=== PATIENT | female | born 1930 | race Caucasian/White ===

== ENCOUNTER 2018-11-29 09:23 | Inpatient (IN) | payer MEDICARE, OTHER ==
[2018-11-29] VITALS (9 sets, daily range): BP systolic 125–144; BP diastolic 47–78
[~2018-11-29] VITALS: Ht 157.5 cm; Wt 50.1 kg
[2018-11-29] MEDS ORDERED: ALBUTEROL/IPRATROPIUM 2.5MG/0.5MG, 3 ML ONE (10:30)
[2018-11-29] MEDS ORDERED: ALBUTEROL/IPRATROPIUM 2.5MG/0.5MG, 3 ML NPPB ONE (10:30)
[2018-11-29] MEDS ORDERED: SODIUM CHLORIDE FLUSH 10ML SYR IVF ONE (10:30)
[2018-11-29 10:49] LABS: ALBUMIN 3.7 g/dL (3.4-5.0); ANION GAP 5 mmol/L (5-15); CALCIUM 8.5 mg/dL (8.5-10.1); CHLORIDE 105 mmol/L (98-107); CREATININE 0.72 mg/dL (0.55-1.02)
[2018-11-29 10:53] LABS: TROPONIN I 0.113 ng/mL (0.000-0.045)
[2018-11-29 10:54] LABS: MD YES; MEAN PLATELET VOLUME 9.6 fL (7.4-10.4); PLATELET COUNT 221 x10^3/uL (130-400); RED BLOOD COUNT 3.52 x10^6/uL (3.82-5.3); RED CELL DISTRIBUTION WIDTH 18.7 % (9.6-15.2)
--- NOTE | 2018-11-29 10:56 | NUR ---
LAB CALLED CRITICAL H&H 6.7 AND 22.5 PROVIDER MADE AWARE
[2018-11-29 10:57] LABS: MEAN CORPUSCULAR HGB CONC 29.7 g/dL (32.4-35.8)
--- NOTE | 2018-11-29 11:06 | NUR ---
PT SIGNED CONSENT FOR BLOOD. AWAITING BLOOD BANK CALL AT THIS TIME.
[2018-11-29 11:17] LABS: <PLATELET ESTIMATE> ADEQUATE; ANISOCYTOSIS 1+; HYPOCHROMIA 2+; LYMPH#(MANUAL) 0.43 x10^3/uL (1-3.4); LYMPHS% (MANUAL) 6 % (22-44); MONOS#(MANUAL) 0.43 x10^3/uL (0.3-2.7); MONOS% (MANUAL) 6 % (2-9); POLYCHROMASIA 1+; SEG#(MANUAL) 6.34 x10^3/uL (1.8-6.8); SEGS% (MANUAL) 88 % (42-75)
[2018-11-29 11:18] LABS: <PLT MORPHOLOGY> NORMAL PLT MORPH
[2018-11-29] MEDS ORDERED: ONDANSETRON ODT 4 MG PO PRN (12:00)
[2018-11-29] MEDS ORDERED: LABETALOL 5MG/ML, 20ML IVPush PRN (12:00)
[2018-11-29] MEDS ORDERED: SODIUM CHLORIDE 0.9% 1,000 ML IV SCH (12:00)
[2018-11-29] MEDS ORDERED: POLYETHYLENE GLYCOL 17 GM PACKET PO PRN (12:00)
[2018-11-29] MEDS ORDERED: ONDANSETRON 2MG/ML, 2ML IVPush PRN (12:00)
[2018-11-29] MEDS ORDERED: ASPIRIN 81 MG TABLET CHEW PO ONE (12:00)
[2018-11-29] MEDS ORDERED: OMEP40CA6 PO (12:02)
[2018-11-29] MEDS ORDERED: URSO250T9 PO (12:02)
[2018-11-29] MEDS ORDERED: TIOT18CA INH (12:03)
[2018-11-29] MEDS ORDERED: DILT240C80 PO (12:03)
[2018-11-29] MEDS ORDERED: ASPIRIN 81 MG TABLET CHEW ONE (12:09)
[2018-11-29 12:22] LABS: INTERNATIONAL NORMALIZED RATIO 1.02 (0.93-1.1); PROTHROMBIN TIME 10.7 Seconds (9.6-11.5)
[2018-11-29 13:01] LABS: FREE T4 (FREE THYROXINE) 1.3 ng/dL (0.76-1.46)
--- NOTE | 2018-11-29 13:52 | NUR ---
PT RESTING COMFORTABLY AT THIS TIME. UNIT OF BLOOD INFUSING. FAMILY AT BEDSIDE.
--- NOTE | 2018-11-29 14:47 | NUR ---
ASSUMED CARE OF PT. PT TOLERATING BLOOD TRANSFUSION.
[2018-11-29] MEDS: methylPREDNISolone SOD SUCC 125 MG/2 ML IVPush SCH ×2 (15:00→20:07)
[2018-11-29 15:28] LABS: TROPONIN I 0.089 ng/mL (0.000-0.045)
[2018-11-29] MEDS ORDERED: ALBUTEROL/IPRATROPIUM 2.5MG/0.5MG, 3 ML NPPB PRN (15:30)
[2018-11-29] MEDS ORDERED: IPRATROPIUM 0.5 MG/2.5 ML INHA HHN SCH (16:30)
[2018-11-29] MEDS: PANTOPRAZOLE 40 MG IV IVPush SCH (17:00)
[2018-11-29 19:07] LABS: TROPONIN I 0.067 ng/mL (0.000-0.045)
[2018-11-29] MEDS: DILTIAZEM 120 MG CAP.ER.12H PO SCH (20:07)
[2018-11-29] MEDS: IPRATROPIUM 0.5 MG/2.5 ML INHA HHN SCH (21:12)
[2018-11-30 00:31] VITALS: BP 129/55
[2018-11-30] MEDS: methylPREDNISolone SOD SUCC 125 MG/2 ML IVPush SCH ×4 (02:57→22:13)
[2018-11-30] MEDS: IPRATROPIUM 0.5 MG/2.5 ML INHA HHN SCH ×4 (03:00→20:09)
[2018-11-30] MEDS: PANTOPRAZOLE 40 MG IV IVPush SCH (05:44)
[2018-11-30 05:47] LABS: CHLORIDE 107 mmol/L (98-107)
[2018-11-30 05:53] LABS: MEAN CORPUSCULAR HEMOGLOBIN 19.9 pg (27.0-34.8); MEAN CORPUSCULAR HGB CONC 30.1 g/dL (32.4-35.8); MEAN CORPUSCULAR VOLUME 66.2 fL (80-100); MEAN PLATELET VOLUME 8.5 fL (7.4-10.4); PLATELET COUNT 154 x10^3/uL (130-400); RED BLOOD COUNT 3.68 x10^6/uL (3.82-5.3); RED CELL DISTRIBUTION WIDTH 19.9 % (9.6-15.2)
[2018-11-30 06:02] LABS: ALANINE AMINOTRANSFERASE 14 U/L (12-78); ALBUMIN 3.3 g/dL (3.4-5.0); ALKALINE PHOSPHATASE 75 U/L (45-117); ANION GAP 6 mmol/L (5-15); BILIRUBIN,TOTAL 0.9 mg/dL (0.2-1.0); CALCIUM 8.1 mg/dL (8.5-10.1); THYROID STIMULATING HORMONE 0.244 mIU/L (0.358-3.740); TOTAL PROTEIN 6.1 g/dL (6.4-8.2)
[2018-11-30 06:31] LABS: MD YES
[2018-11-30 06:32] LABS: ANISOCYTOSIS 1+; LYMPH#(MANUAL) 0.09 x10^3/uL (1-3.4); LYMPHS% (MANUAL) 2 % (22-44); MONOS#(MANUAL) 0.04 x10^3/uL (0.3-2.7); MONOS% (MANUAL) 1 % (2-9); SEG#(MANUAL) 4.17 x10^3/uL (1.8-6.8); SEGS% (MANUAL) 97 % (42-75)
[2018-11-30 06:33] LABS: <PLATELET ESTIMATE> ADEQUATE; <PLT MORPHOLOGY> NORMAL PLT MORPH; HYPOCHROMIA 2+; POLYCHROMASIA 1+
[2018-11-30 06:36] LABS: MICROCYTOSIS 2+
[2018-11-30] MEDS ORDERED: CYANOCOBALAMIN 1,000 MCG/ML, 1ML IM ONE (07:30)
[2018-11-30 07:56] VITALS: BP 121/54
[2018-11-30] MEDS ORDERED: TEMPLATE NON-FORMULARY MED. (Tiotropium Bromide** (Spiriva**) 18 MCG) INH SCH (09:00)
[2018-11-30] MEDS: DILTIAZEM 120 MG CAP.ER.12H PO SCH ×2 (09:00→22:14)
[2018-11-30] MEDS ORDERED: DILTIAZEM HCL 120 MG PO SCH (09:00)
[2018-11-30 10:32] LABS: TROPONIN I 0.058 ng/mL (0.000-0.045)
[2018-11-30] MEDS: IRON SUCROSE COMPLEX 100MG/5ML IV SCH (11:10)
[2018-11-30] MEDS: SENNA/DOCUSATE TABLET PO SCH (11:10)
[2018-11-30 12:38] VITALS: BP 117/59
[2018-11-30] MEDS: PANTOPROZOLE 40MG TABLET PO SCH (17:03)
[2018-11-30 19:08] VITALS: BP 121/57
[2018-12-01 02:16] VITALS: BP 121/52
[2018-12-01] MEDS: IPRATROPIUM 0.5 MG/2.5 ML INHA HHN SCH ×4 (03:00→20:05)
[2018-12-01 04:20] LABS: ALBUMIN 3.1 g/dL (3.4-5.0); ANION GAP 4 mmol/L (5-15); CALCIUM 8.4 mg/dL (8.5-10.1); CHLORIDE 108 mmol/L (98-107)
[2018-12-01 04:22] LABS: CREATININE 0.81 mg/dL (0.55-1.02); MEAN CORPUSCULAR HEMOGLOBIN 20.4 pg (27.0-34.8); MEAN CORPUSCULAR HGB CONC 30.3 g/dL (32.4-35.8); MEAN CORPUSCULAR VOLUME 67.3 fL (80-100); MEAN PLATELET VOLUME 8.8 fL (7.4-10.4); PLATELET COUNT 150 x10^3/uL (130-400); RED CELL DISTRIBUTION WIDTH 19.9 % (9.6-15.2)
[2018-12-01 04:39] LABS: MD YES
[2018-12-01 04:41] LABS: LYMPH#(MANUAL) 0.47 x10^3/uL (1-3.4); LYMPHS% (MANUAL) 4 % (22-44); MONOS#(MANUAL) 0.24 x10^3/uL (0.3-2.7); MONOS% (MANUAL) 2 % (2-9); SEG#(MANUAL) 11.09 x10^3/uL (1.8-6.8); SEGS% (MANUAL) 94 % (42-75)
[2018-12-01 04:42] LABS: ANISOCYTOSIS 1+
[2018-12-01 04:43] LABS: <PLATELET ESTIMATE> ADEQUATE; HYPOCHROMIA 2+; MICROCYTOSIS 2+; POLYCHROMASIA 1+
[2018-12-01 04:44] LABS: OVALOCYTES 1+; TARGET CELLS 1+
[2018-12-01 04:45] LABS: <PLT MORPHOLOGY> NORMAL PLT MORPH
[2018-12-01] MEDS: PANTOPROZOLE 40MG TABLET PO SCH ×2 (05:05→17:28)
[2018-12-01] MEDS: methylPREDNISolone SOD SUCC 125 MG/2 ML IVPush SCH ×4 (05:05→22:06)
[2018-12-01 07:17] VITALS: BP 100/52
[2018-12-01] MEDS: DILTIAZEM 120 MG CAP.ER.12H PO SCH ×2 (09:00→22:04)
[2018-12-01] MEDS ORDERED: BISACODYL 5 MG EC TABLET PO SCH (09:00)
[2018-12-01] MEDS: POLYETHYLENE GLYCOL 17 GM PACKET PO SCH (09:39)
[2018-12-01] MEDS: BISACODYL 5 MG EC TABLET PO SCH (09:39)
[2018-12-01] MEDS: SENNA/DOCUSATE TABLET PO SCH (09:39)
[2018-12-01] MEDS: IRON SUCROSE COMPLEX 100MG/5ML IV SCH (09:39)
[2018-12-01 15:23] VITALS: BP 111/53
[2018-12-01] MEDS ORDERED: CYANOCOBALAMIN 1,000 MCG/ML, 1ML IM ONE (16:00)
[2018-12-01 18:50] VITALS: BP 121/48
[2018-12-02 01:45] VITALS: BP 106/59
[2018-12-02] MEDS: IPRATROPIUM 0.5 MG/2.5 ML INHA HHN SCH ×2 (02:20→08:50)
[2018-12-02] MEDS: PANTOPROZOLE 40MG TABLET PO SCH (06:07)
[2018-12-02] MEDS: methylPREDNISolone SOD SUCC 125 MG/2 ML IVPush SCH (06:07)
[2018-12-02 06:52] VITALS: BP 103/47
[2018-12-02] MEDS ORDERED: PRED10TA PO (08:25)
[2018-12-02] MEDS ORDERED: PANT40TA5 PO (08:25)
[2018-12-02] MEDS ORDERED: ALBU8.5H8 IH (08:28)
[2018-12-02] MEDS ORDERED: TIOT18CA INH (08:28)
[2018-12-02] MEDS ORDERED: BUDE10.2 INH (08:28)
[2018-12-02] MEDS: BISACODYL 5 MG EC TABLET PO SCH (08:56)
[2018-12-02] MEDS: DILTIAZEM 120 MG CAP.ER.12H PO SCH (08:56)
[2018-12-02] MEDS: POLYETHYLENE GLYCOL 17 GM PACKET PO SCH (08:56)
[2018-12-02] MEDS: IRON SUCROSE COMPLEX 100MG/5ML IV SCH (08:56)
[2018-12-02] MEDS: SENNA/DOCUSATE TABLET PO SCH (08:56)
== END 2018-12-02 11:44 | disposition home or self-care (01) | DRG 811 ==
LOC: ED 10:00 → EDIP 11:50 → 4WST 15:01
PROVIDERS: ADMIT Internal Medicine; ATTEND Internal Medicine
PROC: 30233N1 Transfusion of Nonautologous Red Blood Cells into Peripheral Vein, Percutaneous Approach (ICD-10-PCS; principal; 2018-11-29)
DX: D50.9 Iron deficiency anemia, unspecified (principal); J96.21 Acute and chronic respiratory failure with hypoxia; J44.1 Chronic obstructive pulmonary disease with (acute) exacerbation; I31.3 Pericardial effusion (noninflammatory); J44.0 Chronic obstructive pulmonary disease with (acute) lower respiratory infection; J98.11 Atelectasis; E53.8 Deficiency of other specified B group vitamins; F17.210 Nicotine dependence, cigarettes, uncomplicated; H54.8 Legal blindness, as defined in USA; I10 Essential (primary) hypertension; I27.20 Pulmonary hypertension, unspecified; Z99.81 Dependence on supplemental oxygen
CPT/HCPCS: 36415; 71045; 80048; 80053; 82040; 82306; 82607; 82728; 83540; 83550; 83735; 83880; 84100; 84439; 84443; 84484; 85025; 85610; 86850; 86900; 86923; 93005; 93306; 94640; 99285; G0378; J1756; J7620; J7644; C9113; J2930; J3420; J7030; J7512; P9016

== ENCOUNTER 2020-12-11 10:29 | Inpatient (IN) | payer MEDICARE ==
[2020-12-11] VITALS (11 sets, daily range): BP systolic 127–167; BP diastolic 61–80
[~2020-12-11] VITALS: Ht 157.5 cm; Wt 52.4 kg
[~2020-12-11 10:29] MED LIST: ALBU8.5H8 IH; ASPI-1026 PO; ATOR40TA78 PO; BUDE10.2 INH; CLOP75TA PO; DILT240C80 PO; OMEP40CA42 PO; PANT40TA6 PO; POLY17PO5 PO; PRED10TA PO; TIOT18CA INH; URSO250T10 PO
--- NOTE | 2020-12-11 10:44 | NUR ---
BIB EMS FROM [facility] W/ C/O SOB. PT STATES NO OTHER COMPLAINTS. PER [facility] PT HAD BLOODWORK DONE TODAY AND CAME BACK W/ HGB 6 AND BROUGHT TO ED. PT IS ON PLAVIX AND HAS HX GIB. PT NOTED TO HAVE POSITIVE GUAIC STOOL ON ARRIVAL TO ED. PT STATES SHE HAS DARK STOOL BERLIEVES SECONDARY TO IRON SUPPLEMENTS. VS HEAD OF PARTNER DEVELOPMENT HR 98, O2 SASTS 98% 4L NC, BP 134/71. PT RESTING ON GURNEY. NADN. VSS. MONITORS APPLIED. EKG COMPLETED. JOSH FELIX AT BEDSIDE FOR EVAL.
[2020-12-11] MEDS ORDERED: SODIUM CHLORIDE FLUSH 10ML SYR IVF ONE (11:00)
[2020-12-11] MEDS ORDERED: SODIUM CHLORIDE 0.9% 1,000ML IVBOLUS ONE (11:00)
[2020-12-11] MEDS ORDERED: ALBU6.7H8 INH (11:03)
[2020-12-11 11:25] LABS: MEAN CORPUSCULAR HEMOGLOBIN 27.2 pg (27.0-34.8); MEAN CORPUSCULAR HGB CONC 32.9 g/dL (32.4-35.8); MEAN PLATELET VOLUME 8.1 fL (7.4-10.4); PLATELET COUNT 362 x10^3/uL (130-400); RED BLOOD COUNT 2.41 x10^6/uL (3.82-5.3)
[2020-12-11] MEDS ORDERED: PANTOPRAZOLE 80 MG in SODIUM CHLORIDE 0.9% 100 ML IV SCH (11:30)
[2020-12-11] MEDS ORDERED: PANTOPRAZOLE 80 MG in SODIUM CHLORIDE 0.9% 50 ML IVPB ONE (11:30)
[2020-12-11 11:35] LABS: ALANINE AMINOTRANSFERASE 18 U/L (12-78); ALBUMIN 2.8 g/dL (3.4-5.0); ANION GAP 4 mmol/L (5-15); CALCIUM 9.3 mg/dL (8.5-10.1); CHLORIDE 100 mmol/L (98-107); CREATININE 0.62 mg/dL (0.55-1.02)
[2020-12-11 11:38] LABS: MD YES
--- NOTE | 2020-12-11 11:38 | NUR ---
YELLOW SLIP SENT TO PHARMACY FOR MEDS PER NOV.
[2020-12-11 11:39] LABS: ALKALINE PHOSPHATASE 91 U/L (45-117); BILIRUBIN,TOTAL 0.6 mg/dL (0.2-1.0); INTERNATIONAL NORMALIZED RATIO 1.1 (0.93-1.1); PROTHROMBIN TIME 11.8 Seconds (9.6-11.5); TOTAL PROTEIN 6.2 g/dL (6.4-8.2)
--- NOTE | 2020-12-11 11:43 | NUR ---
PT H&H 6.6.0 CONSENT FOR BLOOD SIGNED BY PT, THIS RN WITNESS, AND ERP DR. GRIMES.
--- NOTE | 2020-12-11 11:53 | NUR ---
PT RESTING ON GURNEY. NADN. MUNSON.
--- NOTE | 2020-12-11 11:53 | NUR ---
PER BLOOD BANK WILL SEND PRBC'S FIRST. PLATELETS TO INFUSED LAST PER BLOOD BANK.
--- NOTE | 2020-12-11 12:01 | NUR ---
PURPLE SLIP SENT TO BLOOD BANK.
[2020-12-11] MEDS ORDERED: CHLORHEXIDINE 15 ML UDC ONE (12:15)
[2020-12-11 12:22] LABS: BASOS#(MANUAL) 0.11 x10^3/uL (0-0.1); BASOS% (MANUAL) 1 % (0-1); LYMPH#(MANUAL) 0.21 x10^3/uL (1-3.4); LYMPHS% (MANUAL) 2 % (22-44); MONOS#(MANUAL) 0.42 x10^3/uL (0.3-2.7); MONOS% (MANUAL) 4 % (2-9); SEG#(MANUAL) 9.77 x10^3/uL (1.8-6.8); SEGS% (MANUAL) 93 % (42-75)
[2020-12-11 12:25] LABS: ANISOCYTOSIS 1+
[2020-12-11 12:26] LABS: HYPOCHROMIA 1+; OVALOCYTES 1+
[2020-12-11 12:27] LABS: <PLATELET ESTIMATE> ADEQUATE; <PLT MORPHOLOGY> NORMAL PLT MORPH; MICROCYTOSIS 1+
--- NOTE | 2020-12-11 12:27 | NUR ---
REPORT GIVEN TO JASWINDER, FISHING HAND. PT TO BE TAKEN TO EGD.
[2020-12-11] MEDS ORDERED: ACETAMINOPHEN 325 MG TABLET PO ONE (12:30)
[2020-12-11] MEDS ORDERED: CHLORHEXIDINE 15 ML UDC PO ONE (12:30)
--- NOTE | 2020-12-11 12:35 | NUR ---
REPORT GIVEN TO YUE GAMBOA RN ON SURGICAL. AWARE PT GOING FOR ENDOSCOPY FIRST. ALL QUESTIONS ANSWERED.
[2020-12-11] MEDS ORDERED: PROPOFOL 10 MG/ML, 20ML ONE (13:07)
[2020-12-11] MEDS ORDERED: ALBUTEROL HFA 90 MCG/SPRAY ONE (13:19)
[2020-12-11] MEDS: ALBUTEROL HFA 90 MCG/SPRAY INH SCH ×2 (16:00→20:29)
[2020-12-11] MEDS: FUROSEMIDE 20 MG/2 ML IV SCH (18:05)
[2020-12-11] MEDS: PANTOPRAZOLE 40MG TABLET PO SCH (20:26)
[2020-12-11] MEDS: ATORVASTATIN 40 MG TABLET PO SCH (20:26)
[2020-12-11] MEDS ORDERED: TEMPLATE NON-FORMULARY MED. (Budesonide/Formoterol Fumarate (Symbicort 160-4.5 Mcg Inhaler INH SCH (21:00)
[2020-12-12 00:42] VITALS: BP 126/60
[2020-12-12] MEDS: ALBUTEROL HFA 90 MCG/SPRAY INH SCH ×2 (05:16→06:00)
[2020-12-12 06:35] LABS: ALANINE AMINOTRANSFERASE 17 U/L (12-78); ALBUMIN 2.6 g/dL (3.4-5.0); ANION GAP 6 mmol/L (5-15); CALCIUM 8.4 mg/dL (8.5-10.1); CHLORIDE 101 mmol/L (98-107); CREATININE 0.59 mg/dL (0.55-1.02)
[2020-12-12 06:37] LABS: ALKALINE PHOSPHATASE 89 U/L (45-117); BILIRUBIN,TOTAL 1.8 mg/dL (0.2-1.0); TOTAL PROTEIN 5.7 g/dL (6.4-8.2)
[2020-12-12 08:09] VITALS: BP 164/63
[2020-12-12] MEDS ORDERED: ALBUTEROL HFA 90 MCG/SPRAY INH PRN ×2 (08:30→09:00)
[2020-12-12] MEDS: URSODIOL 250 MG TABLET PO SCH (08:33)
[2020-12-12] MEDS: FUROSEMIDE 20 MG/2 ML IV SCH ×2 (08:33→16:44)
[2020-12-12] MEDS: PANTOPRAZOLE 40MG TABLET PO SCH ×2 (08:33→21:46)
[2020-12-12] MEDS: POTASSIUM CHLORIDE 20 MEQ TAB.ER.PRT PO SCH ×2 (08:33→16:44)
[2020-12-12] MEDS: DILTIAZEM 240 MG CAP.ER.24H PO SCH (08:33)
[2020-12-12] MEDS: FLUTICASONE/VILANTEROL 200-25MCG/INH INH SCH (09:00)
[2020-12-12] MEDS ORDERED: OMEPRAZOLE 20 MG CAPSULE.DR PO SCH (09:00)
[2020-12-12] MEDS ORDERED: FLUTICASONE/VILANTEROL 200-25MCG/INH INH SCH (09:00)
[2020-12-12 12:42] VITALS: BP 137/70
[2020-12-12 15:36] LABS: MEAN CORPUSCULAR HEMOGLOBIN 27.6 pg (27.0-34.8); MEAN CORPUSCULAR HGB CONC 32.8 g/dL (32.4-35.8); MEAN PLATELET VOLUME 7.9 fL (7.4-10.4); PLATELET COUNT 258 x10^3/uL (130-400); RED BLOOD COUNT 4.07 x10^6/uL (3.82-5.3); RED CELL DISTRIBUTION WIDTH 16.5 % (9.6-15.2)
[2020-12-12] MEDS ORDERED: MAGNESIUM SULFATE PMX 4GM/100M 100 ML IVPB ONE (17:00)
[2020-12-12 19:37] VITALS: BP 122/63
[2020-12-12] MEDS: ATORVASTATIN 40 MG TABLET PO SCH (21:46)
[2020-12-13 00:12] VITALS: BP 133/70
[2020-12-13 05:26] LABS: BASOPHILS % (AUTO) 1 % (0-1); EOSINOPHILS % (AUTO) 1 % (1-7); LYMPHOCYTES % (AUTO) 4 % (22-44); MEAN CORPUSCULAR HEMOGLOBIN 27.7 pg (27.0-34.8); MEAN CORPUSCULAR HGB CONC 33.8 g/dL (32.4-35.8); MEAN PLATELET VOLUME 7.9 fL (7.4-10.4); MONOCYTES % (AUTO) 10 % (2-9); NEUTROPHILS % (AUTO) 84 % (42-75); PLATELET COUNT 253 x10^3/uL (130-400); RED BLOOD COUNT 3.42 x10^6/uL (3.82-5.3); RED CELL DISTRIBUTION WIDTH 16.5 % (9.6-15.2)
[2020-12-13 05:28] LABS: MD NO
[2020-12-13 05:42] LABS: CHLORIDE 99 mmol/L (98-107)
[2020-12-13 05:49] LABS: ANION GAP 6 mmol/L (5-15); CREATININE 0.63 mg/dL (0.55-1.02)
[2020-12-13] MEDS ORDERED: POTASSIUM CHLORIDE 20 MEQ TAB.ER.PRT PO ONE (07:00)
[2020-12-13 07:36] VITALS: BP 138/75
[2020-12-13] MEDS: URSODIOL 250 MG TABLET PO SCH (08:37)
[2020-12-13] MEDS: DILTIAZEM 240 MG CAP.ER.24H PO SCH (08:37)
[2020-12-13] MEDS: PANTOPRAZOLE 40MG TABLET PO SCH ×2 (08:37→21:09)
[2020-12-13] MEDS: FUROSEMIDE 20 MG/2 ML IV SCH (08:38)
[2020-12-13] MEDS: FLUTICASONE/VILANTEROL 200-25MCG/INH INH SCH (09:00)
[2020-12-13] MEDS: POTASSIUM CHLORIDE 20 MEQ TAB.ER.PRT PO SCH ×2 (11:03→17:33)
[2020-12-13 11:59] VITALS: BP 122/70
[2020-12-13 16:30] VITALS: BP 127/73
[2020-12-13] MEDS: FUROSEMIDE 20 MG TABLET PO SCH (17:32)
[2020-12-13 20:17] VITALS: BP 112/58
[2020-12-13] MEDS: ATORVASTATIN 40 MG TABLET PO SCH (21:09)
[2020-12-14 00:51] VITALS: BP 104/76
[2020-12-14 06:17] LABS: BASOPHILS % (AUTO) 0 % (0-1); EOSINOPHILS % (AUTO) 1 % (1-7); LYMPHOCYTES % (AUTO) 3 % (22-44); MEAN CORPUSCULAR HEMOGLOBIN 27.4 pg (27.0-34.8); MEAN CORPUSCULAR HGB CONC 32.3 g/dL (32.4-35.8); MEAN PLATELET VOLUME 7.7 fL (7.4-10.4); MONOCYTES % (AUTO) 7 % (2-9); NEUTROPHILS % (AUTO) 89 % (42-75); PLATELET COUNT 241 x10^3/uL (130-400); RED CELL DISTRIBUTION WIDTH 16.5 % (9.6-15.2)
[2020-12-14 06:19] LABS: MD NO
[2020-12-14 06:28] LABS: ANION GAP 3 mmol/L (5-15); CALCIUM 7.7 mg/dL (8.5-10.1); CHLORIDE 102 mmol/L (98-107); CREATININE 0.62 mg/dL (0.55-1.02)
[2020-12-14 07:27] VITALS: BP 130/69
[2020-12-14] MEDS: PANTOPRAZOLE 40MG TABLET PO SCH (08:30)
[2020-12-14] MEDS: FUROSEMIDE 20 MG TABLET PO SCH (08:30)
[2020-12-14] MEDS: DILTIAZEM 240 MG CAP.ER.24H PO SCH (08:30)
[2020-12-14] MEDS: POTASSIUM CHLORIDE 20 MEQ TAB.ER.PRT PO SCH (08:31)
[2020-12-14] MEDS: URSODIOL 250 MG TABLET PO SCH (08:31)
[2020-12-14] MEDS: FLUTICASONE/VILANTEROL 200-25MCG/INH INH SCH (10:30)
[2020-12-14] MEDS ORDERED: MAGNESIUM HYDROXIDE 8%, 30ML UDC PO PRN (12:00)
[2020-12-14] MEDS ORDERED: BISACODYL 10 MG SUPP PR PRN (12:00)
[2020-12-14 12:22] VITALS: BP 135/76
[2020-12-14] MEDS ORDERED: FLUT1BLS INH (15:07)
[2020-12-14] MEDS ORDERED: ALBU18HF INH (15:07)
[2020-12-14] MEDS ORDERED: PANT40TA6 PO (15:07)
== END 2020-12-14 16:12 | DRG 378 ==
LOC: ED 10:53 → EDIP 11:42 → SUATTDRO 11:57 → 4EST 16:28
PROVIDERS: ADMIT Family Medicine; ATTEND Family Medicine
PROC: 0W3P8ZZ Control Bleeding in Gastrointestinal Tract, Via Natural or Artificial Opening Endoscopic (ICD-10-PCS; 2020-12-11)
PROC: 30233N1 Transfusion of Nonautologous Red Blood Cells into Peripheral Vein, Percutaneous Approach (ICD-10-PCS; 2020-12-11)
PROC: 0DB98ZX Excision of Duodenum, Via Natural or Artificial Opening Endoscopic, Diagnostic (ICD-10-PCS; principal; 2020-12-11 13:00)
DX: K31.811 Angiodysplasia of stomach and duodenum with bleeding (principal); I47.2 Ventricular tachycardia; D62 Acute posthemorrhagic anemia; I50.30 Unspecified diastolic (congestive) heart failure; J96.10 Chronic respiratory failure, unspecified whether with hypoxia or hypercapnia; K21.01 Gastro-esophageal reflux disease with esophagitis, with bleeding; K44.9 Diaphragmatic hernia without obstruction or gangrene; E87.6 Hypokalemia; I65.23 Occlusion and stenosis of bilateral carotid arteries; H91.90 Unspecified hearing loss, unspecified ear; I11.0 Hypertensive heart disease with heart failure; I48.91 Unspecified atrial fibrillation; Z20.822 Contact with and (suspected) exposure to COVID-19; J44.9 Chronic obstructive pulmonary disease, unspecified; Z60.2 Problems related to living alone; K90.0 Celiac disease; R13.10 Dysphagia, unspecified; R29.6 Repeated falls; Z79.02 Long term (current) use of antithrombotics/antiplatelets; Z79.82 Long term (current) use of aspirin; Z86.73 Personal history of transient ischemic attack (TIA), and cerebral infarction without residual deficits; Z87.891 Personal history of nicotine dependence; Z99.81 Dependence on supplemental oxygen
CPT/HCPCS: 36415; 71045; 80048; 80053; 83735; 83880; 85014; 85018; 85025; 85027; 85610; 85730; 86850; 86900; 86923; 87635; 88305; 93005; 94640; 96361; 99291; G0378; J2704; C9113; J1940; J3475; J7030; P9016

== ENCOUNTER 2021-01-23 15:33 | Inpatient (IN) | payer MEDICARE ==
[~2021-01-23] VITALS: Ht 175.3 cm; Wt 52.8 kg
[2021-01-23] MEDS: D5%-0.9% NACL 1,000 ML IV SCH ×2 (15:30→21:34)
[~2021-01-23 15:33] MED LIST changes: +ALBU18HF INH; +ALBU6.7H8 INH; +FLUT1BLS INH
[2021-01-23] MEDS ORDERED: SODIUM CHLORIDE FLUSH 10ML SYR IVF ONE (16:00)
[2021-01-23] MEDS ORDERED: PLEASE ENTER HEIGHT AND WEIGHT MC SCH (16:00)
--- NOTE | 2021-01-23 16:12 | NUR ---
BIB [facility], PT WITH FROM [facility], STAFF REPORTING PT IS NOT ACTING HERSELF. ON ARRIVAL FSBG 39. PT SATING 80 ON 3L, PT WAS GIVEN 250 D10. PT O2 INCREASE TO 93 ON 6L. PER EMS HEARTTONE PT WITH ILLEUS ON DX DONE AT THE FACILITY. BS TITLE I MATH TUTOR 180 POST D10 ADMIN, ON ARRIVAL 103. RECTAL TEMP INITIALLY 95.96, REPEAT 96.7. WARM BLANKETS PROVIDED, REPEAT FS 103. ERMD AT BEDSIDE TO EVAL AND AWARE OF REPEAT BS VALUE. PT TO ECG, CONT PULSE OX, BP. PT STRAIGHT CATHED, ADDITIONAL PIV ACCESS INITIATED, LABS AND BC DRAWN.
[2021-01-23 16:22] LABS: MEAN CORPUSCULAR HEMOGLOBIN 27.4 pg (27.0-34.8); MEAN CORPUSCULAR HGB CONC 32.9 g/dL (32.4-35.8); MEAN PLATELET VOLUME 8.1 fL (7.4-10.4); PLATELET COUNT 155 x10^3/uL (130-400); RED BLOOD COUNT 3.51 x10^6/uL (3.82-5.3); RED CELL DISTRIBUTION WIDTH 18.7 % (9.6-15.2)
[2021-01-23 16:23] LABS: ACETONE, SERUM Negative (Negative)
[2021-01-23 16:29] LABS: ALANINE AMINOTRANSFERASE 93 U/L (12-78); ALBUMIN 1.9 g/dL (3.4-5.0); ANION GAP 14 mmol/L (5-15); CHLORIDE 106 mmol/L (98-107); CREATININE 1.51 mg/dL (0.55-1.02)
[2021-01-23 16:33] LABS: ALKALINE PHOSPHATASE 152 U/L (45-117); BILIRUBIN,TOTAL 1.8 mg/dL (0.2-1.0); TOTAL PROTEIN 4.8 g/dL (6.4-8.2)
[2021-01-23 16:34] LABS: MICROSCOPIC INDICATED
[2021-01-23 16:39] LABS: MD YES
[2021-01-23 16:45] LABS: BAND#(MANUAL) 3.41 x10^3/uL; BANDS%(MANUAL) 31 % (0-7); LYMPH#(MANUAL) 0.22 x10^3/uL (1-3.4); LYMPHS% (MANUAL) 2 % (22-44); METAMYELOCYTES# (MANUAL) 1.43 x10^3/uL (0-0); METAMYELOCYTES% (MANUAL) 13 % (0-1); MONOS#(MANUAL) 0.33 x10^3/uL (0.3-2.7); MONOS% (MANUAL) 3 % (2-9); SEG#(MANUAL) 5.61 x10^3/uL (1.8-6.8); SEGS% (MANUAL) 51 % (42-75)
[2021-01-23 16:48] LABS: OVALOCYTES 1+
[2021-01-23 16:50] LABS: ACANTHOCYTES 2+
--- NOTE | 2021-01-23 16:50 | NUR ---
PT TO CT AT THIS TIME
[2021-01-23 16:53] LABS: <PLATELET ESTIMATE> ADEQUATE; PMNS WITH VACUOLES 1+
[2021-01-23 16:55] LABS: TOXIC GRAN 1+
[2021-01-23] MEDS ORDERED: OMNIPAQUE 350 MG/ML, 75ML BOTTLE ONE (16:56)
[2021-01-23 16:57] LABS: ECHINOCYTES 2+
[2021-01-23 16:58] LABS: ANISOCYTOSIS 2+
[2021-01-23] MEDS ORDERED: PIPERACILLIN IVPB ONE (17:30)
[2021-01-23] MEDS ORDERED: VANCOMYCIN PER PHARMACY MC ONE (17:30)
[2021-01-23] MEDS ORDERED: SODIUM CHLORIDE 0.9% IVPB ONE (17:30)
[2021-01-23] MEDS ORDERED: TAZO IVPB ONE (17:30)
[2021-01-23] MEDS ORDERED: MORPHINE SULFATE 4 MG/ML, 1ML ONE ×3 (17:35→19:00)
[2021-01-23] MEDS: MORPHINE SULFATE 4 MG/ML, 1ML IVPush PRN ×4 (17:39→19:32)
[2021-01-23] MEDS ORDERED: PIPERACILLIN/TAZO 4.5 GM in SODIUM CHLORIDE 0.9% 100 ML IVPB ONE (17:48)
--- NOTE | 2021-01-23 17:59 | NUR ---
ERMD IN TO UPDATE PT/FAMILY ON CT RESULTS AND NEED FOR SURGERY. DR GORE RECOMMENDING COMFORT CARE MEASURES BE INITIATED. DAUGHTER IN TO SPEAK WITH OTHER DAUGHTER AND TO COME TO A DECISION SHORTLY, HOLD ON MEDS,NG TUBE AT THIS TIME, WILL GIVE ADDITIONAL PAIN MEDICATION PER MAR.
[2021-01-23] MEDS ORDERED: VANCOMYCIN 1,300 MG in SODIUM CHLORIDE 0.9% 250 ML IV ONE (18:00)
[2021-01-23 18:27] VITALS: BP 94/57
[2021-01-23] MEDS ORDERED: SODIUM CHLORIDE FLUSH 10ML SYR IVF PRN (18:30)
--- NOTE | 2021-01-23 18:53 | NUR ---
REPORT TO OLGA REAL
--- NOTE | 2021-01-23 18:55 | NUR ---
REPORT FROM [place] REAL
[2021-01-23] MEDS ORDERED: morphine SULFATE 10 MG/ML, 1ML IV PRN (20:30)
[2021-01-23] MEDS ORDERED: LORazepam 2 MG/ML, 1ML IVPush PRN (21:00)
[2021-01-23] MEDS ORDERED: MORPHINE SULFATE 4 MG/ML, 1ML IVPush PRN (21:00)
[2021-01-23] MEDS ORDERED: ONDANSETRON 2MG/ML, 2ML IVPush PRN (21:00)
[2021-01-23] MEDS ORDERED: ATROPINE OPHTH SOLN 1%, 5ML PO PRN (21:00)
[2021-01-23] MEDS ORDERED: SODIUM CHLORIDE FLUSH 10ML SYR IVF SCH (21:00)
== END 2021-01-24 03:50 | disposition expired | DRG 871 ==
LOC: ED 16:55 → EDIP 18:10 → 4NW 19:12
PROVIDERS: ADMIT Family Medicine; ATTEND Family Medicine
PROC: 0T9B70Z Drainage of Bladder with Drainage Device, Via Natural or Artificial Opening (ICD-10-PCS; principal; 2021-01-23)
PROC: 0D9670Z Drainage of Stomach with Drainage Device, Via Natural or Artificial Opening (ICD-10-PCS; 2021-01-23)
DX: A41.89 Other specified sepsis (principal); N17.0 Acute kidney failure with tubular necrosis; E43 Unspecified severe protein-calorie malnutrition; G93.41 Metabolic encephalopathy; J96.21 Acute and chronic respiratory failure with hypoxia; K56.609 Unspecified intestinal obstruction, unspecified as to partial versus complete obstruction; I48.20 Chronic atrial fibrillation, unspecified; I74.5 Embolism and thrombosis of iliac artery; I50.32 Chronic diastolic (congestive) heart failure; Z68.1 Body mass index [BMI] 19.9 or less, adult; K55.9 Vascular disorder of intestine, unspecified; Z66 Do not resuscitate; Z51.5 Encounter for palliative care; R65.20 Severe sepsis without septic shock; E11.51 Type 2 diabetes mellitus with diabetic peripheral angiopathy without gangrene; B96.4 Proteus (mirabilis) (morganii) as the cause of diseases classified elsewhere; I65.23 Occlusion and stenosis of bilateral carotid arteries; I70.8 Atherosclerosis of other arteries; R74.01 Elevation of levels of liver transaminase levels; D64.9 Anemia, unspecified; F41.9 Anxiety disorder, unspecified; I11.0 Hypertensive heart disease with heart failure; J44.9 Chronic obstructive pulmonary disease, unspecified; K59.00 Constipation, unspecified; Z86.73 Personal history of transient ischemic attack (TIA), and cerebral infarction without residual deficits; Z87.891 Personal history of nicotine dependence; Z99.81 Dependence on supplemental oxygen; Z79.899 Other long term (current) drug therapy
CPT/HCPCS: 36415; 71045; 74177; 80053; 81001; 82010; 82962; 83605; 83880; 85025; 87040; 87077; 87086; 87186; 93005; 96374; 96376; G0378; J7042; Q9967; J2060; J2270